=== PATIENT | female | born 1955 | race Caucasian/White ===

== ENCOUNTER 2018-10-07 07:08 | Emergency (ER) | payer BC ==
[~2018-10-07] VITALS: Ht 160 cm; Wt 97.3 kg
[2018-10-07 08:20] LABS: ALANINE AMINOTRANSFERASE 23 U/L (12-78); ALBUMIN 3.8 G/DL (3.4-5.0); ALBUMIN/GLOBULIN RATIO 1.1 (1.1-1.5); ALKALINE PHOSPHATASE 91 IU/L (46-116); ANION GAP 8 (8-16); ASPARTATE AMINO TRANSFERASE 14 U/L (10-37); BILIRUBIN,TOTAL 0.6 MG/DL (0.1-1.0); BLOOD UREA NITROGEN 19 MG/DL (7-18); BUN/CREATININE RATIO 26.4 (6.6-38.0); CALCIUM 8.8 MG/DL (8.5-10.1); CHLORIDE 103 MMOL/L (99-107); CREATININE 0.72 MG/DL (0.40-0.90); GLUCOSE 101 MG/DL (70-104); SODIUM 139 MMOL/L (135-145); TOTAL CARBON DIOXIDE 27.8 MMOL/L (24-32); TOTAL PROTEIN 7.3 G/DL (6.4-8.2); eGFR 82 ML/MIN
[2018-10-07 08:27] VITALS: BP 118/81
[2018-10-07 08:27] LABS: MAGNESIUM 1.9 MG/DL (1.5-2.4)
[2018-10-07 08:31] LABS: BASOPHILS % (AUTO) 0.5 % (0-1); EOSINOPHILS % (AUTO) 0.7 % (0-6); HEMATOCRIT 38.5 % (35.0-45.0); HEMOGLOBIN 13.1 g/dl (12.0-16.0); LYMPHOCYTES # (AUTO) 1.2 X10'3 (1.1-4.8); LYMPHOCYTES % (AUTO) 17.4 % (21-51); MEAN CORPUSCULAR HEMOGLOBIN 29.8 PG (27.0-31.0); MEAN CORPUSCULAR HGB CONC 34.1 g/dL (33.0-36.5); MEAN CORPUSCULAR VOLUME 87.4 FL (78-98); MONOCYTES # (AUTO) 0.5 X10'3 (0-0.9); MONOCYTES % (AUTO) 7.9 % (2-12); NEUTROPHILS # (AUTO) 5.1 X10'3 (1.8-7.7); NEUTROPHILS % (AUTO) 73.5 % (42-75); PLATELET COUNT 253 X10'3 (140-440); RED BLOOD COUNT 4.41 X10'6 (4.20-5.60); RED CELL DISTRIBUTION WIDTH 13.4 % (11.5-14.5)
== END 2018-10-07 11:09 | disposition home or self-care (01) ==
LOC: ER 07:08
DX: R07.89 Other chest pain (principal); R42 Dizziness and giddiness; R51 Headache; I10 Essential (primary) hypertension; K21.9 Gastro-esophageal reflux disease without esophagitis; Z88.8 Allergy status to other drugs, medicaments and biological substances
CPT/HCPCS: 36415; 71045; 80053; 83735; 83880; 84484; 85025; 93005; 99284

== ENCOUNTER 2018-10-13 05:58 | Day surgery (SDC) | payer BC ==
[2018-10-11 08:58] LABS: BASOPHILS % (AUTO) 0.6 % (0-1); EOSINOPHILS # (AUTO) 0.1 X10'3 (0-0.9); EOSINOPHILS % (AUTO) 1.9 % (0-6); HEMATOCRIT 39.1 % (35.0-45.0); HEMOGLOBIN 13.1 g/dl (12.0-16.0); LYMPHOCYTES # (AUTO) 1.1 X10'3 (1.1-4.8); LYMPHOCYTES % (AUTO) 19.4 % (21-51); MEAN CORPUSCULAR HEMOGLOBIN 29.6 PG (27.0-31.0); MEAN CORPUSCULAR HGB CONC 33.5 g/dL (33.0-36.5); MEAN CORPUSCULAR VOLUME 88.3 FL (78-98); MEAN PLATELET VOLUME 7.6 FL (7.4-10.4); MONOCYTES # (AUTO) 0.4 X10'3 (0-0.9); NEUTROPHILS # (AUTO) 3.9 X10'3 (1.8-7.7); NEUTROPHILS % (AUTO) 70.1 % (42-75); PLATELET COUNT 296 X10'3 (140-440); RED BLOOD COUNT 4.43 X10'6 (4.20-5.60); RED CELL DISTRIBUTION WIDTH 13.7 % (11.5-14.5); WHITE BLOOD COUNT 5.6 X10'3 (4.5-11.0)
[2018-10-11 09:10] LABS: ALANINE AMINOTRANSFERASE 25 U/L (12-78); ALBUMIN 3.7 G/DL (3.4-5.0); ALBUMIN/GLOBULIN RATIO 1.1 (1.1-1.5); ALKALINE PHOSPHATASE 75 IU/L (46-116); ANION GAP 7 (8-16); ASPARTATE AMINO TRANSFERASE 15 U/L (10-37); BILIRUBIN,TOTAL 0.6 MG/DL (0.1-1.0); BLOOD UREA NITROGEN 11 MG/DL (7-18); BUN/CREATININE RATIO 14.1 (6.6-38.0); CALCIUM 8.9 MG/DL (8.5-10.1); CHLORIDE 107 MMOL/L (99-107); CREATININE 0.78 MG/DL (0.40-0.90); GLUCOSE 87 MG/DL (70-104); POTASSIUM 3.6 MMOL/L (3.5-5.1); SODIUM 142 MMOL/L (135-145); TOTAL CARBON DIOXIDE 28.1 MMOL/L (24-32); eGFR 74 ML/MIN
[2018-10-11 09:19] LABS: PARTIAL THROMBOPLASTIN TIME 28 SECONDS (22-32)
[~2018-10-13] VITALS: Ht 160 cm; Wt 95.4 kg
[2018-10-13] VITALS (14 sets, daily range): BP systolic 118–146; BP diastolic 60–77
[2018-10-13] MEDS ORDERED: diphenhydrAMINE 25mg capsule PO PRN (06:15)
[2018-10-13] MEDS ORDERED: nitroGLYCERIN 0.4mg SUBLingual tab SL PRN (06:15)
[2018-10-13] MEDS ORDERED: LORazepam 0.5 MG tablet PO PRN (06:15)
[2018-10-13] MEDS ORDERED: normal saline 1,000 ML IV SCH (06:15)
[2018-10-13] MEDS ORDERED: SYN0.088T PO (06:27)
[2018-10-13] MEDS ORDERED: LOSA100T57 PO (06:27)
[2018-10-13] MEDS ORDERED: [UNRECOGNIZED DRUG - OTHER] PO (06:27)
[2018-10-13] MEDS ORDERED: TUMERIC PO (06:27)
[2018-10-13] MEDS ORDERED: TRAM50TA2 PO (06:27)
[2018-10-13] MEDS ORDERED: ASPI81TA52 PO (06:27)
[2018-10-13] MEDS ORDERED: CHOL10002 PO (06:27)
[2018-10-13] MEDS ORDERED: CYAN100087 PO (06:27)
[2018-10-13] MEDS ORDERED: ESOM40CA49 PO (06:27)
[2018-10-13] MEDS ORDERED: iohexol 350 MG/ML 50ML vial IV ONE ×2 (07:35→09:50)
[2018-10-13] MEDS ORDERED: LIDOcaine 1% (10mg/ml)w/preservative injection 20ml MDV ONE ×2 (07:35→09:50)
[2018-10-13] MEDS ORDERED: iohexol 350MG/ML 100ml bottle IV ONE ×2 (07:35→09:50)
[2018-10-13] MEDS ORDERED: midazolam 2 mg/2 ml injection ONE ×3 (07:35→10:21)
[2018-10-13] MEDS ORDERED: heparin 1,000 UNITS/NS 500ml 500 ML ONE ×2 (07:35)
[2018-10-13] MEDS ORDERED: fentaNYL/PF 50MCG/1 ML 2ML syringe ONE ×2 (07:35→09:50)
== END 2018-10-13 16:50 | disposition home or self-care (01) ==
LOC: SSTAY O 05:58
PROVIDERS: ATTEND Internal Medicine Cardiovascular Disease
DX: R07.9 Chest pain, unspecified (principal); K21.9 Gastro-esophageal reflux disease without esophagitis; F41.9 Anxiety disorder, unspecified; E66.9 Obesity, unspecified; Z79.899 Other long term (current) drug therapy
CPT/HCPCS: 36415; 80053; 85025; 85610; 85730; 93458; 99152; 99153; A6257; J1644; J2001; J2250; J3010; J7030; Q0163; Q9967; A4620; C1760; C1769

== ENCOUNTER 2022-10-23 07:22 | Emergency (ER) | payer MEDICARE, BC ==
[~2022-10-23] VITALS: Ht 160 cm; Wt 90.9 kg
[~2022-10-23 07:22] MED LIST: ASPI81TA52 PO; CHOL10002 PO; CYAN100087 PO; ESOM40CA49 PO; LOSA100T57 PO; SYN0.088T PO; TRAM50TA2 PO; TUMERIC PO; [UNRECOGNIZED DRUG - OTHER] PO
[2022-10-23] MEDS ORDERED: aspirin 81mg tab.chew PO ONE (07:45)
[2022-10-23 08:22] LABS: BASOPHILS % (AUTO) 0.7 % (0-1); EOSINOPHILS % (AUTO) 0.2 % (0-6); HEMATOCRIT 39.3 % (35.0-45.0); HEMOGLOBIN 13.3 g/dl (12.0-16.0); LYMPHOCYTES # (AUTO) 1.4 X10'3 (1.1-4.8); LYMPHOCYTES % (AUTO) 28.3 % (21-51); MEAN CORPUSCULAR HEMOGLOBIN 31.5 PG (27.0-31.0); MEAN CORPUSCULAR HGB CONC 33.8 g/dL (33.0-36.5); MEAN CORPUSCULAR VOLUME 93.2 FL (78-98); MEAN PLATELET VOLUME 7.5 FL (7.4-10.4); MONOCYTES # (AUTO) 0.6 X10'3 (0-0.9); MONOCYTES % (AUTO) 11.3 % (2-12); NEUTROPHILS % (AUTO) 59.5 % (42-75); PLATELET COUNT 250 X10'3 (140-440); RED BLOOD COUNT 4.22 X10'6 (4.20-5.60); RED CELL DISTRIBUTION WIDTH 13.8 % (11.5-14.5); WHITE BLOOD COUNT 5.1 X10'3 (4.5-11.0)
[2022-10-23 09:04] LABS: ALANINE AMINOTRANSFERASE 25 U/L (12-78); ALBUMIN 3.5 G/DL (3.4-5.0); ALBUMIN/GLOBULIN RATIO 0.9 (1.1-1.5); ALKALINE PHOSPHATASE 97 IU/L (46-116); ANION GAP 13 (8-16); ASPARTATE AMINO TRANSFERASE 28 U/L (10-37); BILIRUBIN,TOTAL 0.5 MG/DL (0.1-1.0); BLOOD UREA NITROGEN 12 MG/DL (7-18); BUN/CREATININE RATIO 18.8 (10.0-20.0); CALCIUM 8.9 MG/DL (8.5-10.1); CHLORIDE 105 MMOL/L (99-107); CREATININE 0.64 MG/DL (0.40-0.90); GLUCOSE 96 MG/DL (70-104); MAGNESIUM 2.2 MG/DL (1.5-2.4); POTASSIUM 5.3 MMOL/L (3.5-5.1); SODIUM 141 MMOL/L (135-145); TOTAL CARBON DIOXIDE 23.4 MMOL/L (24-32); TOTAL PROTEIN 7.2 G/DL (6.4-8.2); eGFR > 90 ML/MIN
[2022-10-23] MEDS ORDERED: iohexol 300mg/ml 100ml inj. ONE (09:35)
[2022-10-23 10:54] VITALS: BP 144/71
[2022-10-23] MEDS ORDERED: sodium polystyrene sulfonate 15gm/60ml oral suspension PO ONE (11:25)
== END 2022-10-23 11:55 | disposition home or self-care (01) ==
LOC: ER 07:23
DX: R07.9 Chest pain, unspecified (principal); R91.1 Solitary pulmonary nodule; R11.2 Nausea with vomiting, unspecified; R42 Dizziness and giddiness; I10 Essential (primary) hypertension; K21.9 Gastro-esophageal reflux disease without esophagitis; E03.9 Hypothyroidism, unspecified; Z88.8 Allergy status to other drugs, medicaments and biological substances; Z79.899 Other long term (current) drug therapy
CPT/HCPCS: 36415; 71045; 71260; 80053; 83735; 83880; 84484; 85025; 93005; 96372; 99285; J3490; Q9967; 99283

== ENCOUNTER 2025-06-04 18:47 | Emergency (ER) | payer MEDICARE, BC ==
[~2025-06-04] VITALS: Ht 160 cm; Wt 87.0 kg
[~2025-06-04 18:47] MED LIST changes: -LOSA100T57 PO; +LOSA100T58 PO
[2025-06-04 18:56] VITALS: TEMP 98.4
--- NOTE | 2025-06-04 18:57 | ELECTROCARDIOGRAPH REPORT ---
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
[2025-06-04 19:23] LABS: MEAN PLATELET VOLUME 7.2 FL (7.4-10.4); RED CELL DISTRIBUTION WIDTH 13.1 % (11.5-14.5)
[2025-06-04 19:45] LABS: CREATININE 0.73 MG/DL (0.40-0.90); PRO BRAIN NATRIURETIC PEPTIDE 39 PG/ML (0-125); TOTAL CARBON DIOXIDE 28.4 MMOL/L (24-32); eCRCL 58 ML/MIN; eGFR 79 ML/MIN
--- NOTE | 2025-06-04 20:33 | RADIOLOGY REPORT ---
CLINICAL HISTORY: CP. TECHNIQUE: Single frontal view of the chest was obtained. COMPARISON: CHEST SINGLE VIEW on DOS: 10/23/22 FINDINGS: Lungs: Clear. Pleura: No pneumothorax or pleural effusion. Cardiomediastinal silhouette: Normal in size. Mild aortic atherosclerosis. Bones: No acute osseous abnormality. Imaged Upper Abdomen: Unremarkable. IMPRESSION: NO ACUTE CARDIOPULMONARY PROCESS.
--- NOTE | 2025-06-04 21:12 | Physician Documentation ---
History of Present Illness ~ Chief Complaint: Dizziness Stated Complaint: HIGH BP/HEADACHE Time Seen by MD: 20:54 HPI This is a 69-year-old female who presents for evaluation of five days feeling "off. Today she had developed headache. She checked her blood pressure. Her systolic was as high as 144. She continued to check her blood pressure with a her numbers increasing. She took her blood pressure medications today. She reports generalized headache, not the worst headache of life, no vision or hearing changes, no focal deficits when inquired in plain Setswana. She denies chest pain or difficulty breathing. Denies flank pain. Denies abdominal pain. She does report feeling dizzy that she describes as a spinning sensation and unsteadiness, that happens to her often, especially with the position changes. No concern for tobacco, alcohol or illicit substances use Medication Reconciliation Allergies: Coded Allergies: amlodipine (Verified Allergy, Unknown, 10/07/18) Scheduled Aspirin (Aspirin EC), 1 TABLET PO DAILY, (Reported) Cholecalciferol (Vitamin D3) (Vitamin D3), 1 TAB PO DAILY, (Reported) Cyanocobalamin (Vitamin B-12) (Vitamin B-12), 1,000 MCG PO DAILY, (Reported) Esomeprazole Magnesium (Nexium), 1 CAP PO DAILY, (Reported) Levothyroxine Sodium* (Synthroid*), 1 TAB PO DAILY, (Reported) Losartan Potassium (Losartan Potassium), 1 TAB PO DAILY, (Reported) [glucosaminew/tumeric], 1 TAB PO DAILY, (Reported) Scheduled PRN Tramadol HCl (Tramadol HCl), 1 TABLET PO TID PRN for pain, (Reported) Past Medical History Past Medical History: Hypertension, GERD, Thyroid (unspecified) Past Surgical History: noncontributory Drug Use: none Lives with: Father Lives In: Home Review of Systems ROS 10 point review of systems was performed and unless noted above in HPI is negative for acute process/complaint. Physical Exam Vital Signs: Temperature: 98.4, Source: Oral, Heart Rate: 74, Respiratory Rate: 16, BP: 144/80, Pulse Oximetry: 97, Weight: 87.000 Oxygen Flow Rate: 0 Physical Exam GENERAL: Awake, alert, oriented, GCS 15, no apparent distress, non-toxic appearing, answers questions, follows commands appropriately. HEENT: Atraumatic, normocephalic, pupils equal, extraocular muscles intact, sclerae anicteric, mucus membranes moist, oropharynx is clear, no stridor. NECK: supple, full active range of motion, trachea midline, no thyromegaly, no lymphadenopathy, no JVD. CARDIOVASCULAR: regular rate/rhythm, no murmurs/gallops/rubs, Pulses are 2+ in all extremities and symmetric. Capillary refill less than 2 seconds. PULMONARY: Nonlabored, good air movement ,no respiratory distress, speaking in full sentences, clear to auscultation bilaterally, no wheezing, no ronchi, no rales, no accessory muscle use. GASTROINTESTINAL: Soft, non-tender, non-distended, normal active bowel sounds, no organomegaly, no pulsatile masses, no CVA tenderness. NEUROLOGIC: Lucid with normal mental status. Normal facial symmetry. Moves all extremities symmetrically and with purpose. No truncal ataxia. Speech is fluid without evidence of dysarthria or aphasia, no focal deficits appreciated. MUSCULOSKELETAL: There is full range of motion of all extremities. There is no joint pain or joint swelling or joint erythema. There is no muscle pain or tenderness or swelling. EXTREMITIES: warm, well-perfused, no cyanosis, no clubbing, no edema, no acute deformities. Skin: warm, dry, no rashes or lesions, no jaundice, no petechiae orpurpura. No ecchymosis. PSYCHIATRIC: Normal affect, normal insight, normal concentration. Focused exam: [] Progress Results/Orders Results/Orders Orders - BRAYAN RICE DO Chest,Single View (06/04/25 19:05) Monitor (06/04/25 18:54) Saline Lock (06/04/25 18:54) Oxygen (06/04/25 18:54) Hs Troponin I W Calculations (06/04/25 21:54) Ct Head (06/04/25 21:15) Completed Orders - BRAYAN RICE DO Chest,Single View (06/04/25 19:05) Cbc/Diff (06/04/25 18:54) BMP (06/04/25 18:54) PBNP (06/04/25 18:54) Electrocardiogram (06/04/25 18:54) Hs Troponin I W Calculations (06/04/25 18:54) Hs Troponin I W Calculations (06/04/25 20:54) Ct Head (06/04/25 21:15) Vital Signs 06/04/25 18:56 Temp 98.4 Pulse 74 Resp 16 B/P (MAP) 144/80 Pulse Ox 97 O2 Flow Rate 0 Laboratory Tests Test 06/04/25 19:10 06/04/25 21:02 White Blood Count 6.8 Red Blood Count 4.19 L Hemoglobin 13.3 Hematocrit 38.6 Mean Corpuscular Volume 92.3 Mean Corpuscular Hemoglobin 31.7 H Mean Corpuscular Hemoglobin Concent 34.4 Red Cell Distribution Width 13.1 Platelet Count 295 Mean Platelet Volume 7.2 L Neutrophils (%) (Auto) 66.2 Lymphocytes (%) (Auto) 25.4 Monocytes (%) (Auto) 8.1 Eosinophils (%) (Auto) 0 Basophils (%) (Auto) 0.3 Neutrophils # (Auto) 4.5 Lymphocytes # (Auto) 1.7 Monocytes # (Auto) 0.6 Eosinophils # (Auto) 0.0 Basophils # (Auto) 0.0 CBC Comment Sodium Level 140 Potassium Level 4.0 Chloride Level 105 Carbon Dioxide Level 28.4 Anion Gap 7 L Blood Urea Nitrogen 14 Creatinine 0.73 Estimated GFR/1.73 m2 79 BUN/Creatinine Ratio 19.2 Glucose Level 94 Calcium Level 8.8 Troponin I High Sensitivity 45 41 Pro-B-Type Natriuretic Peptide 39 Albumin 3.7 Chemistry Comments Troponin I High Sens Percent Delta 8 Troponin I Hi Sens Absolute Change -4 EKG/XRAY/CT/US/VASC/MRI EKG : Additional Comment EKG was obtained and interpreted by myself shows sinus rhythm of 65, normal OR interval, narrow QRS, no QT prolongation, normal axis, no STEMI. Medical Decision Making Additional information obtaine: family Findings Facility Status: ED Holds, E process The plan was discussed with the patient, who demonstrates clear understanding of the plan and is in agreement with the plan unless otherwise noted in the chart. All questions have been answered, all concerns were addressed unless otherwise documented. I was available throughout their ED stay for frequent reassessment and questions. Differential Diagnoses (considered and possible or likely): [Tension headache, less likely migraine, less likely trigeminal neuralgia, less likely cluster head ache. Intracranial bleed and neoplasm had also been considerably less likely. With a respect to hypotension, differential includes but not limited to hypotension, hypertensive urgency, hypertensive emergency with a end-organ damage] ??Differential Diagnoses (considered and unlikely, not requiring evaluation currently): [No evidence of lateralizing signs to suspect a stroke] MDM Data Please see HPI for the following: Independent Historians and external Records Review. Historian: [Patient] Independent Historians: ?[Has been] Medication Management: [Reviewed medication list] Social History and determinants: [Reviewed] Please see the body of the note for the following: Any independent interpretations of ECG, imaging studies. All vitals signs/haemodynamics, ordered tests were independently reviewed and i nterpreted by myself. 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 The patient isn't febrile, not tachycardic, no evidence hypotension respiratory distress. CBC notable. No leukocytosis. No anemia. Normal platelets. Chemistry is unremarkable. Normal renal function. Normal troponin. Normal BNP. Chest x- ray was obtained showing no acute cardiopulmonary disease. Repeat troponin is negative. Head CT shows no acute intracranial process.] Tests considered but not ordered include: [Not applicable] Social Determinants of Health Impact: Patient was evaluated in [facility], or [facility] [place] to healthcare due to below par ratio of patient to medical providers. [] Comorbid Conditions Impacting Present Evaluation and Care/Treatment: [Hypertension] Management Discussions with other Healthcare Providers: [] Treatment and Disposition Medication Management (Given or considered): []. See EMR for details Consideration for Hospitalization/Escalation/Deescalation of Care: Admission for observation has been considered, [however the patient is able to tolerate p.o., their symptoms are controlled, they are able to rely on oral medications, and their chief complaint/diagnosis can be managed on outpatient basis.] ?ED Course:?[No clinical deterioration] ?Shared decision making:?[Patient is hemodynamically stable for discharge home with follow with their primary care provider. [ ] Specific and cautious return precautions provided and discussed with full understanding. Any incidental findings were also discussed and follow up recommendations given. [] All questions answered. Patient/family were able to verbalize back return precautions. Patient/family agree to plan. Copies of imaging and laboratory studies were provided.] Code status:?FULL Please see the full Electronic Medical Record for full details of nursing d ocumentation, medications list, other records of complete past medical history and conditions, vital signs, laboratory studies, and any radiologic study interpretations by radiologists. Portions of this note were completed using [employer]ation dictation software and as a result there may exist minor errors in spelling. I have reviewed elements of past family and social history and agree as included in note. Differential Dx:Considerations: Include: other (See the main body of the note for differential diagnosis) Departure Disposition: 01 HOME / SELF CARE / HOMELESS Impression: Primary Impression: Hypertension Additional Impressions: Dizziness Headache Condition: Improved Discharge Instructions: Dizziness, Hypertension, Adult Referrals: NO PRIMARY CARE PROVIDER (PCP) Education Educated: Patient Educated regarding: diagnosis, treatment, prognosis, need for follow up Signature Scribe Signature: No scribe Attestation: The note accurately reflects work and decisions made by me.Brayan Rice DO 06/04/25 21:11 BRAYAN RICE DO Jun 04, 2025 21:12
--- NOTE | 2025-06-04 21:43 | RADIOLOGY REPORT ---
PROCEDURE: [facility] Study Date and Requested Time: 06/04/2025 09:08 PM History: FERRARA COMPARISON: None Dose: CTDI: 53.04 mGy DLP: 921.38 mGycm TECHNIQUE: Multiplanar images obtained through the brain without intravenous contrast. FINDINGS: Mild frontoparietal atrophy. Prominent perivascular space inferior to the right basal ganglia. No hemorrhages, masses, mass effect, midline shift, herniation or cytotoxic edema following a large vascular territory. No intra-axial or extra-axial fluid collections. No evidence of hydrocephalus. The basal cisterns are patent. Nonspecific Empty sella. The cerebellar tonsils are in normal position. The cerebellum is unremarkable. The orbits and globes are unremarkable. The paranasal sinuses and left mastoid are clear. Opacification of right inferior mastoid. There are no worrisome calvarial lesions. IMPRESSION: No evidence of acute intracranial abnormality. Right inferior mastoid disease.
[2025-06-04 22:25] VITALS: BP 138/72; PULSE 60; RESP 18; O2SAT 98
== END 2025-06-04 22:26 | disposition home or self-care (01) ==
LOC: ER 18:48
DX: I10 Essential (primary) hypertension (principal); R42 Dizziness and giddiness; R51.9 Headache, unspecified; K21.9 Gastro-esophageal reflux disease without esophagitis; Z88.8 Allergy status to other drugs, medicaments and biological substances; Z79.899 Other long term (current) drug therapy; Z79.82 Long term (current) use of aspirin
CPT/HCPCS: 36415; 70450; 71045; 80048; 83880; 84484; 85025; 93005; 99285